=== PATIENT | male | born 1950 | race African-American/Black ===

== ENCOUNTER 2016-07-15 10:56 | Inpatient (IN) ==
[2016-07-15] MEDS ORDERED: ASPIRIN 325 MG TABLET PO STA (11:55)
[2016-07-15] MEDS ORDERED: ENOXAPARIN 100 MG/ML SYRINGE SUBCUT STA (11:55)
[2016-07-15 12:12] LABS: Basophils % 0.6 % (0.0-0.8); Eosinophils # 0.2 10*3/uL (0.0-0.87); Hemoglobin 16.8 GM/DL (14.0-18.0); Immature Granulocytes % 0.2 %; Immature Granulocytes Absolute 0.01 #; Lymphocytes # 1.8 10*3/uL (1.4-4.0); Lymphocytes % 34.8 % (21.2-54.2); Mean Corpuscular HGB Conc 36.5 GM/DL (32-36); Mean Corpuscular Hemoglobin 30 PG (27-34); Mean Corpuscular Volume 82.7 FL (87-102); Mean Platelet Volume 9.2 FL (9.6-12.0); Monocytes # 0.5 10*3/uL (0.11-0.8); Monocytes % 9.3 % (1.7-12.7); Neutrophils # 2.8 10*3/uL (1.4-7.4); Neutrophils % 52.1 % (38.7-73.9); Platelet Count 171 T/CUMM (130-400); Red Blood Count 5.56 MC/CUMM (3.8-5.5); White Blood Count 5.3 T/CUMM (4-12)
--- NOTE | 2016-07-15 12:33 | XRay Report ---
XR chest 2V Date: 07/15/2016 11:56 AM History: Chest pain Comparison: None Technique: PA and lateral chest Findings: The heart is normal in size. The lungs are clear with unremarkable mediastinum. Degenerative changes are noted. Impression: No acute cardiopulmonary pathology identified. PROCEDURE INTERPRETED AT [facility] DEPARTMENT OF RADIOLOGY Final Report Signed by: Dr. Babita Lopez
[2016-07-15 12:47] LABS: Bilirubin,Total 1.3 MG/DL (0.2-1.0); Calcium 8.9 MG/DL (8.5-10.1); Magnesium 2.3 MG/DL (1.8-2.4); Osmolality,Calculated 278.5 MOS/KG (273-304); Potassium 3.8 MMOL/L (3.5-5.1)
[2016-07-15] MEDS ORDERED: ENOXAPARIN 80 MG/0.8 ML SYRINGE SUBCUT ONE (12:48)
[2016-07-15] MEDS ORDERED: ASPIRIN 325 MG TABLET ONE (12:48)
--- NOTE | 2016-07-15 13:10 | Emergency Department Note ---
Gabriela Domínguez Mantricia, am scribing for, and in the presence of, Enmanuel Johns MD 12:03. Nat Domínguez Phillip K, MD, personally performed the services described in this documentation, ascribed by Arina Ochoa in my presence, and it is both accurate and complete 310 . Arrival - Arrival Chief Complaint: Chest Pain Stated Complaint: CHEST PAIN ED Nursing Triage Note: sent from Dr Winchester clinic - left sided chest pain onset x 1 week - pt states that the pain is worse with excertion Mode of Arrival: Wheelchair Limitations: No Limitations Source: Patient Time Seen by Provider: 07/15/16 11:36 - History of Present Illness HPI Narrative: Pt is a 65 y/o black male arriving to ED with c/o chest that onset a week ago. 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 He also states that the day after he rode his bike for 5 minutes and the pain started once again. Pt describes the pain as tight with no radiation and similar to indigestion. He has a PMHx of DM but denies HTN. He states that he has self-prescribed himself an aspirin once a day. Pt reports SOB and denies a treadmill or heart cath. Pt' s PCP is Dr. Winchester. Onset (ago): week(s) Consistency: constant Severity: moderate Severity scale (1-10): 3 Quality: sharp Allergies/Adverse Reactions: Allergies Allergy/AdvReac Type Severity Reaction Status Date / Time No Known Allergies Allergy Unverified 07/15/16 11:00 Review of System - Review of System 12 point system: reviewed and no additional remarkable complaints except as stated - Review of System Constitutional: Absent: chills, diaphoresis, fever Eyes: Absent: discharge, pain, redness Head/Ears/Nose/Throat: Absent: earache, epistaxis Respiratory: Absent: cough, respiratory distress, wheezing Cardiovascular: Present: chest pain (tight), dyspnea on exertion. Absent: palpitations Gastrointestinal: Absent: abdominal pain, nausea, vomiting, diarrhea Genitourinary male: Absent: urgency, frequency Musculoskeletal: Present: leg pain. Absent: arm pain, back pain, lower back pain Skin: Absent: rash, lesions, change in color Neurological: Absent: headache, weakness Psychiatric: Absent: anxiety, depression Medical,Surgical,& Family Hx - Surgical History Cardiac Surgeries: Patient Denies: Internal Defibrillator - Social History Smoking Status: Never smoker Frequency of Alcohol Use: None Type of Drug Use: None Exam Vital Signs: Vital Signs Temperature 97.3 F L 07/15/16 11:00 Pulse Rate 84 07/15/16 11:00 Respiratory Rate 20 07/15/16 11:00 Blood Pressure 164/112 07/15/16 11:00 O2 Sat by Pulse Oximetry 96 07/15/16 11:00 - General General appearance: alert, in no apparent distress - Head Head exam: Present: atraumatic, normocephalic, normal inspection - Eye Eye exam: Present: normal appearance, PERRL, EOMI - ENT ENT exam: Present: normal exam, normal oropharynx, mucous membranes moist, TM's normal bilaterally, normal external ear exam - Neck Neck exam: Present: normal inspection, full ROM, trachea midline. Absent: tenderness - Chest Chest inspection: Present: normal inspection, symmetric chest wall rise. Absent : tenderness - Respiratory Respiratory exam: Present: normal lung sounds bilaterally - Cardiovascular Cardiovascular exam: Present: regular rate, normal rhythm, normal heart sounds - Abdominal Exam Abdominal exam: Present: soft, normal bowel sounds. Absent: distention, tenderness, guarding, rebound - Extremities Exam Extremities exam: Present: normal inspection, full ROM, normal capillary refill. Absent: tenderness, pedal edema - Back Exam Back exam: Present: normal inspection, full ROM. Absent: tenderness - Neurological Exam Neurological exam: Present: alert, oriented X3, CN II-XII intact, normal gait, reflexes normal - Psychiatric Psychiatric exam: Present: normal affect, normal mood - Skin Skin exam: Present: warm, dry, intact, normal color Course Course Narrative: Patient discussed with Dr. Santa. Results - Labs CBC & BMP: 07/15/16 11:57 07/15/16 11:57 Lab Results: I have reviewed the patients labs - EKG EKG results: interpreted by ERMD, WNL, sinus rhythm - Diagnostic Findings Procedure: Chest x-ray: report reviewed by me (Nothing acute) Disposition Clinical Impression: Chest pain, Unstable angina pectoris, Hypertension Case discussed with: patient Condition: Guarded Additional Instructions: Admit to cardiology
--- NOTE | 2016-07-15 13:17 | EKG Report ---
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
--- NOTE | 2016-07-15 14:22 | Cardiology History & Physical ---
<Nora Bowen - Last Filed: 07/15/16 14:01> Assessment and Plan - Time spent with patient Time spent with patient: Greater than 30 minutes (1) Chest pain Status: Acute Assessment and plan: This could possibly be multifactorial. He confirms exertional chest tightness which is concerning for angina. On exam, his left chest is tender to palpation. He is unsure if this reproduces the exact pain that he has been having over the past week. Troponin has been mildly elevated at 0.1. EKG reveals LVH. I will keep patient n.p.o., continue to cycle cardiac biomarkers and further discuss with Dr. Santa about the need for possible cardiac catheterization versus noninvasive workup. -Admit to telemetry -Continue to cycle cardiac biomarkers and EKG -N.p.o. -Echocardiogram -Lipid panel -Aspirin daily -Received therapeutic dose of Lovenox in the emergency department Further plan and addendum to follow per Dr. Santa. Current Visit: Yes (2) Hypertension Status: Acute Assessment and plan: Upon arrival to the emergency department patient was hypertensive. He reports that he does not take anything for high blood pressure at home. EKG was consistent with LVH. At this time I will initiate Coreg and make further adjustments as needed in order to achieve blood pressure control. 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 Tommy Handley Mr. Melara is a 65 year old male without known history of coronary artery disease, not routinely followed by cardiology. Patient presented to the emergency department this morning with a one-week history of exertional chest pain. Patient has coronary risk factors significant for advanced age and borderline diabetic (reports that he had a hemoglobin A1c of 5.8 recently). Patient reports he does not take any prescription medications daily. He is a lifetime non-smoker. He denies any significant family history of coronary artery disease. Patient has never been seen by cardiology and has never undergone heart catheterization or cardiac stress testing. Patient was in his usual state of health until approximately 1 week ago when he began experiencing exertional chest pain. He describes this pain as a left sided chest tightness that is associated with shortness of breath. Nonradiating. He denies nausea, diaphoresis and heart palpitations/heart racing. He tells me that he usually experiences this with exertion. He reports being very active and confirms that over the past week he has experienced chest tightness and shortness of breath while performing his activities. During the past week at work, he reports having multiple episodes of chest tightness while exerting himself. He attempted to ride his stationary exercise bike on Friday and reports that he began having chest discomfort approximately five minutes after starting. This was made better after stopping and resting. On Friday, he then got on the treadmill to attempt to reproduce the pain. He reports having chest tightness approximately 5 minutes after beginning. He reports that this frightened him. This morning, he called Dr. Handley's office in hopes to be worked in early that morning. He was seen by Dr. Handley and was then told to report to the emergency department for further evaluation. Patient has been admitted under cardiology service and will be housed on the telemetry floor. Of note, patient confirms recent change in his exercise tolerance and easy fatigability. He reports that he has noticed worsening dyspnea on exertion. He denies fever, chills, cough, nausea, vomiting, melena, hematochezia, abdominal pain, orthopnea, PND and lower extremity swelling. Patient was seen and examined in the emergency department. He is currently without chest pain, heaviness and tightness. EKG reveals LVH. Chest x-ray does not reveal any acute findings. Troponin mildly elevated at 0.1. On exam, his left chest is tender to palpation. He is unsure if this reproduces the exact pain that he has been having over the past week. At this point, I will keep patient n.p.o., continue to cycle cardiac biomarkers and further discuss with Dr. Santa about possible need for cardiac catheterization versus noninvasive workup. Further plan and addendum to follow per Dr. Santa. Allergies Allergy/AdvReac Type Severity Reaction Status Date / Time No Known Allergies Allergy Unverified 07/15/16 11:00 - Constitutional Constitutional: Present: fatigue. Absent: chills, fever(s), frequent falls, malaise, weakness, weight gain, weight loss - Cardiovascular Cardiovascular: Present: chest pain with activity, dyspnea, dyspnea on exertion. Absent: diaphoresis, edema, radiating jaw, neck or arm pain, lightheadedness, orthopnea, palpitations, PND - Respiratory Respiratory: Present: dyspnea, dyspnea on exertion. Absent: cough, hemoptysis, snoring, pain on inspiration, change in phlegm color - Gastrointestinal Gastrointestinal: Absent: abdominal pain, change in bowel habits, coffee ground emesis, constipation, cramping, diarrhea, hematemesis, hematochezia, loose stools, melena, nausea, vomiting - Neurological Neurological: Absent: abnormal gait, abnormal speech, behavioral changes, dizziness, frequent falls, headache(s), syncope - Hematologic/Lymphatic Hematologic/Lymphatic: Absent: easy bleeding, easy bruising, lymphadenopathy Medical,Surgical,& Family Hx - Medical History Endocrine: History of: Diabetes Mellitus (NIDDM) (Borderline diabetic) - Surgical History Cardiac Surgeries: Patient Denies: Cardiac Surgery, Internal Defibrillator - Family History Family History: Denies;: Family Heart Disease - Social History Smoking Status: Never smoker Frequency of Alcohol Use: None Type of Drug Use: None Cardiology Physical Exam - Constitutional Vitals: Vital Signs Temp Pulse Resp BP Pulse Ox 97.3 F L 84 18 164/112 100 07/15/16 13:07 07/15/16 13:07 07/15/16 13:07 07/15/16 13:07 07/15/16 13:00 General appearance: normal weight, no acute distress - Head Head exam: Present: normal inspection, normocephalic, atraumatic - Neck Neck exam: Present: normal inspection. Absent: lymphadenopathy, tenderness, thyromegaly - Respiratory Respiratory exam: Present: clear to auscultation bilaterally, chest wall tenderness. Absent: accessory muscle use, rales, rhonchi, stridor, wheezes - Cardiovascular Cardiovascular exam: Present: regular rate and rhythm. Absent: gallop, rubs, systolic murmur - GI/Abdominal GI/Abdominal exam: Present: normal bowel sounds, soft. Absent: distended, firm , mass, tenderness - Extremities Exam Extremities exam: Present: normal inspection, normal capillary refill. Absent: calf tenderness, edema - Neurological Exam Neurological exam: Present: alert, oriented X3, normal gait - Psychiatric Psychiatric exam: Present: normal affect, normal mood - Skin Skin exam: Present: normal color, warm, dry Result/EKG - Labs CBC & BMP: 07/15/16 11:57 07/15/16 11:57 Lab Results: I have reviewed the past 24 hour labs <Eyal Santa - Last Filed: 07/15/16 15:44> History of Present Illness History of present illness: I have personally interviewed and examined patient and reviewed chart. Discussed case with Nora Bowen NP and agree with accessment and plan. In summation and addition Mr. Melara is a 65 year old male for the past 2 weeks had developed predictable exertional angina. This beginning to limit his activities. On evaluation his ECG throat unremarkable. Troponin 0.137. Patient with his history she had cardiac catheterization and I discussed this with the patient and with Dr. Lewis. I discussed cardiac catheterization and percutaneous coronary intervention with the patient and available family. I reviewed with them the indications for the procedure and the basis of how the procedure would be carried out. I also reviewed with them the risk of the procedure which include but not necessarily limited to access site bleeding, bruising, pain, swelling or vascular injury that may require emergency vascular surgery, blood transfusion, or thrombin injection. Also discussed the possibility of stroke, myocardial infarction, arrhythmia which may require electrocardioversion, and the possibility of dye reaction that would require medical therapy. Also discussed the possibility of coronary artery injury, ruptured, closure or perforation that may require emergency bypass surgery. We also discussed the possibility of from a major complication. They voice understanding and agree to proceed. Procedures planned for tomorrow. Cardiology Physical Exam - Constitutional Vitals: Vital Signs Temp Pulse Resp BP Pulse Ox 97.9 F 68 18 159/94 98 07/15/16 14:49 07/15/16 14:49 07/15/16 14:49 07/15/16 14:49 07/15/16 14:49 Result/EKG - Labs CBC & BMP: 07/15/16 11:57 07/15/16 11:57
[2016-07-15] MEDS ORDERED: MAGNESIUM SULF RIDER 4 GM in PREMIX 1 EACH IV PRN (14:48)
[2016-07-15] MEDS ORDERED: MAGNESIUM SULF RIDER 2 GM in PREMIX 1 EACH IV PRN ×2 (14:48→15:18)
[2016-07-15] MEDS ORDERED: ONDANSETRON 4 MG/2 ML VIAL IV PRN (14:48)
[2016-07-15 14:55] LABS: Risk Ratio 5.73
--- NOTE | 2016-07-15 15:17 | EKG Report ---
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
[2016-07-15] MEDS ORDERED: POTASSIUM CHLORIDE RIDER 10 MEQ in PREMIX 1 EACH IV PRN (15:18)
[2016-07-15] MEDS: DEXTROSE 5% NACL 0.45% 1,000 ML IV SCH ×2 (15:22→23:30)
[2016-07-15 15:45] LABS: Troponin I Only 0.152 NG/ML (0.00-0.045)
--- NOTE | 2016-07-15 16:09 | Event Note ---
Mr. Bryon Ayala is now asymptomatic. He has had recurrent chest pain with clear exertional component. He has slight elevation of troponin with nonspecific ST- T changes. Given the suggestion of symptoms and his risk factors, he wishes for definitive evaluation, and so heart catheterization is recommended to define his coronary anatomy. We will plan for heart catheterization in the morning from right groin access. I discussed with the patient the risks and benefits of heart catheterization including but not limited to: , stroke, heart attack, vascular damage, reaction to medicine or dye, bleeding requiring blood transfusion, failure of the procedure, and the possible need for planned or emergency surgery. I have answered all the patient's questions regarding the procedure, and the patient is agreeable to proceed.
[2016-07-15 16:19] LABS: INR 1.1; PT Patient Result 11.7 SECS
[2016-07-15] MEDS: CARVEDILOL 6.25 MG TABLET PO SCH ×2 (17:48→21:25)
[2016-07-15] MEDS: ATORVASTATIN 40 MG TABLET PO SCH (17:48)
[2016-07-15 17:56] LABS: Troponin I Only 0.168 NG/ML (0.00-0.045)
--- NOTE | 2016-07-15 18:40 | ECHO Report ---
Bryon Melara Exam Date: 07/15/2016 16:10 Referring Physician: Technologist: Candi Noland RDCS Age: 65 Ht (in): 67 Wt (lb): 165 Gender: M Exam Location: [facility] Echo Indications: Chest pain, unspecified, Essential (primary) hypertension, Chronic fatigue, unspecified, Dyspnea, unspecified, NIDDM BP: 159 / 94 HR: 66 Rhythm: Sinus Technical Quality: Good IMPRESSIONS 1. Left ventricle is normal size and systolic function with ejection fraction of 60%. No segmental wall motion amount is. 2. Other cardiac chambers are normal size and function. 3. Trace to mild mitral valve regurgitation. 4. Trace to mild tricuspid valve regurgitation. 5. Overall this is an unremarkable echocardiogram.[id number] MEASUREMENTS (Male / Female) Normal Values 2D ECHO LV Diastolic Diameter PLAX 3.9 cm 4.2 - 5.9 / 3.9 - 5.3 cm LV Systolic Diameter PLAX 2.3 cm LV Fractional Shortening PLAX 40.2 % IVS Diastolic Thickness 1.0 cm 0.6 - 1.0 / 0.6 - 0.9 cm LVPW Diastolic Thickness 1.0 cm 0.6 - 1.0 / 0.6 - 0.9 cm RV Internal Dim ED PLAX 2.8 cm Aortic Root Diameter 3.1 cm LA Systolic Diameter LX 3.5 cm 3.0 - 4.0 / 2.7 - 3.8 cm DOPPLER TR Peak Velocity 232.0 cm/s TR Peak Gradient 21.5 mmHg FINDINGS Left Ventricle Normal left ventricular cavity size. Normal left ventricular wall thickness. Left ventricular ejection fraction is estimated at 60 %. Right Ventricle The right ventricle is normal in size and function. Right Atrium The right atrium is normal in size. Left Atrium The left atrium is normal in size. Mitral Valve Morphologically normal mitral valve. Trace to mild mitral valve regurgitation. Aortic Valve Morphologically normal aortic valve without significant sclerosis or stenosis. There is no aortic regurgitation. Tricuspid Valve Morphologically normal tricuspid valve. Trace to mild tricuspid valve regurgitation. Tricuspid regurgitation velocities suggest a PAP of 32 mmHg. Pulmonic Valve Morphologically normal pulmonic valve without significant stenosis. There is no pulmonic regurgitation. Pericardium Normal pericardium without effusion. Aorta Normal ascending aorta dimension. Eyal Santa MD (Electronically Signed) Final Date: 15 Jul 2016 18:39
[2016-07-15] MEDS: ENOXAPARIN 80 MG/0.8 ML SYRINGE SUBCUT SCH (21:25)
[2016-07-16 07:06] LABS: Basophils % 0.4 % (0.0-0.8); Eosinophils # 0.1 10*3/uL (0.0-0.87); Eosinophils % 2.3 % (0.00-10.9); Hematocrit 39.6 VOL% (42.0-52.0); Immature Granulocytes % 0.4 %; Immature Granulocytes Absolute 0.02 #; Lymphocytes # 1.5 10*3/uL (1.4-4.0); Lymphocytes % 26.3 % (21.2-54.2); Mean Corpuscular HGB Conc 35.1 GM/DL (32-36); Mean Corpuscular Hemoglobin 31 PG (27-34); Mean Corpuscular Volume 87.4 FL (87-102); Mean Platelet Volume 9.2 FL (9.6-12.0); Monocytes # 0.4 10*3/uL (0.11-0.8); Monocytes % 7.5 % (1.7-12.7); Neutrophils # 3.5 10*3/uL (1.4-7.4); Neutrophils % 63.1 % (38.7-73.9); Platelet Count 141 T/CUMM (130-400); Red Blood Count 4.53 MC/CUMM (3.8-5.5); Red Cell Distribution Width 12.9 % (9.3-17.3); White Blood Count 5.6 T/CUMM (4-12)
[2016-07-16 07:09] LABS: Hemoglobin 13.9 GM/DL (14.0-18.0)
--- NOTE | 2016-07-16 07:21 | EKG Report ---
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
[2016-07-16 07:28] LABS: Calcium 7.1 MG/DL (8.5-10.1); Potassium 3.6 MMOL/L (3.5-5.1)
[2016-07-16] MEDS ORDERED: diphenhydrAMINE CAP 25 MG CAPSULE PO ONE (07:30)
[2016-07-16] MEDS ORDERED: DIAZEPAM 5 MG TABLET PO ONE (07:30)
[2016-07-16 07:32] LABS: Troponin I Only 0.089 NG/ML (0.00-0.045)
[2016-07-16] MEDS: SODIUM CHLORIDE 0.45% 1,000 ML IV SCH ×2 (08:12→17:18)
[2016-07-16] MEDS: DEXTROSE 5% NACL 0.45% 1,000 ML IV SCH (08:28)
[2016-07-16] MEDS ORDERED: ASPIRIN 325 MG TABLET PO SCH (09:00)
[2016-07-16] MEDS ORDERED: LIDOCAINE 1% 20 ML VIAL ONE (09:04)
[2016-07-16] MEDS ORDERED: HYDROmorphone 2 MG/1 ML VIAL ONE (09:07)
[2016-07-16] MEDS ORDERED: MIDAZOLAM 2 MG/2 ML VIAL ONE (09:08)
[2016-07-16] MEDS ORDERED: DIAZEPAM 5 MG TABLET ONE (09:15)
[2016-07-16] MEDS ORDERED: diphenhydrAMINE CAP 25 MG CAPSULE ONE (09:15)
[2016-07-16] MEDS ORDERED: ASPIRIN 325 MG TABLET ONE (09:16)
[2016-07-16] MEDS ORDERED: ENOXAPARIN 60 MG/0.6 ML SYRINGE ONE (09:44)
[2016-07-16] MEDS ORDERED: TICAGRELOR 90 MG TABLET ONE (09:47)
[2016-07-16] MEDS ORDERED: ADENOSINE 90 MG/30 ML VIAL IV ONE (10:16)
[2016-07-16] MEDS ORDERED: ZALEPLON 5 MG CAPSULE PO PRN (10:34)
[2016-07-16] MEDS ORDERED: HYDROmorphone 2 MG/1 ML VIAL IV PRN (10:34)
[2016-07-16] MEDS ORDERED: NITROGLYCERIN SL 0.4 MG TABLET SL PRN (10:34)
--- NOTE | 2016-07-16 10:49 | Cardiac Catheterization ---
Date of Procedure:: 07/16/16 Post-op diagnosis: same Procedure: Procedure performed: 1. Left heart catheterization 2. Coronary angiography 3. Left ventricular for 4. Angioplasty and stenting of proximal ID with drug-eluting stent (3.5 x 15) 5. Angioplasty of critical distal LAD disease with 2.0 x 30 balloon 6. WaveWire evaluation of proximal circumflex intermediate disease 7. Right femoral artery closure with the Angio-Seal device Brief clinical summary: The patient presented with exertional chest discomfort and mild troponin elevation suggestive non-STEMI. Description of procedure: After obtaining informed consent, the right groin was prepped and draped in the usual sterile fashion. Next a short 6 Lithuanian sheath was placed in the right femoral artery using a modified Seldinger technique, after the patient received IV sedation and local anesthetic. Next a JL4 catheter was advanced over a guidewire under fluoroscopic guidance, and was engaged to the left coronary artery after which angiography was performed in multiple views. This was then removed over a wire, and a JR4 catheter was advanced in similar fashion, and was engaged to the right coronary artery after which angiography was performed in multiple views. Next a bent pigtail catheter was advanced into the left ventricle, where hemodynamic measurements were obtained, and left ventriculography was performed. Percutaneous coronary intervention was then performed as described below. After intervention, an angiogram of the sheath showed that it was inserted in the right common femoral artery in a vessel suitable for closure. Hemostasis was obtained with Angio- Seal device with no residual bleeding. The patient was transferred from the supervisor cytogenetic laboratory in good condition without complication. Percutaneous coronary mention: The patient by the Pick Up having received Lovenox 24 hours ago. I gave him additional 0.5 mg/kg of IV Lovenox. He was given aspirin prior to procedure. We loaded him with Brilinta on the table prior to procedure. A EBU 3.5 guiding cath was advanced but would not engage the left coronary artery. Therefore was removed and a 4.0 EBU was advanced and engaged the vessel well providing good support. Next a pro-water wire was advanced to the distal LAD with only modest difficulty. After this a 3.0 x 12 balloon was advanced across the proximal lesion was dilated to just below nominal pressures. There was residual stenosis of about 50%. The balloon was removed and a 3.5 x 15 drug-eluting Lucho stent was advanced and positioned being deployed at nominal pressures. The stent was well sized proximally was slightly oversized distally without dissection. The balloon was then removed. Next a 2.0 x 30 compliant balloon was advanced over the wire after was positioned in the distal tip of the LAD. It was advanced across area of very distal disease and dilated to low pressure. There was one discrete area of stenosis. Therefore pulled the balloon back about a centimeter and a half and redilated leaving the distal tip of the balloon just across the tight stenosis. It was dilated to just under normal pressures for 2 minutes. There was an excellent radiographic result. Of note there was JOSÉ MIGUEL II flow at the B and the procedure was JOSÉ MIGUEL-3 flow in the LAD afterwards. There was 0% residual stenosis of the distal aorta proximally sites. The patient tolerated procedure very well without complication. The wire was then removed, and a wave wire was calibrated and advanced into the circumflex. Adenosine infusion was performed with lowest FFR of 0.84. The proximal circumflex lesion was therefore deemed not significant and w will be treated medically. Left ventriculography: Left ventricle normal size and normal LV systolic function for this with ejection fraction 60% without segmental wall motion only. Coronary angiography: Left main coronary is normal to felt very disease. Is a bit larger than average caliber per the LAD is also slightly larger than average caliber but there is a critical 99% approximately stenosis. There is also a 99% very distal LAD stenosis and the vessel fills by [id number] collaterals past the apex. There is 1 larger than average diagonal branch that comes off high with a 60% ostial stenosis near the area of critical LAD disease. The circumflex gives off a small OM1 and a very large bifurcating OM 2 branch. There is also an average caliber P01 and PL due and a small left sided PDA. The right coronary artery is smaller than average caliber and is codominant vessel giving off a long thin acute marginal which provides some small septal perforators. There is a 90% proximal stenosis and a 99% mid stenosis. Impression: 1. Normal LV systolic function with ejection fraction is to be 65% without segmental wall motion abnormality. 2. Left dominant versus codominant system (smaller contribution from a smaller RCA) 3. Coronary artery disease as described above including but not limited to: A. 99% proximal LAD stenosis which is discrete, as well as 99% very distal LAD stenosis with apical segment being filled by [id number] collaterals B. 60% proximal circumflex stenosis (nonsignificant by WaveWire evaluation with FFR 0.84) C. 90% proximal and 99% mid RCA disease (reasonably small vessel) 4. Status post angioplasty stenting of proximal LAD with 3.5 x 15 YOSSI with good result (well sized proximally and slightly oversized distally) 5. Status post angioplasty of critical distal artery disease with 2.0 x 30 balloon with good result (no residual stenosis) Recommendation discussion: I believe achieved very good result with regard to stenting Mr. Kang critical proximal knee lesion, as well as his critical distal artery disease. His circumflex to be treated medically given the negative FFR. His RCA can be treated medically to his it is a smallish and more left dominant system. He will continue on aspirin and Brilinta. He will need to avoid squatting strain lifting for the next 1 week time per Anesthesia: minimal conscious sedation Surgeon / Physician: Darrell Lewis Catering Chef: other Estimated blood loss: minimal Specimens: none sent Condition: stable Disposition: floor - Medications / Follow-up
--- NOTE | 2016-07-16 12:09 | EKG Report ---
Stationary ECG Study [facility] Test Date: 07/16/2016 12:09:12 PM Pat Name: RUSSEL MAR Department: Room: 287 Gender: M Behavioral Health Tech: YOAV : 1950 Requested by: Darrell Sanz Order Number: [id number] Reading MD: HAYDE WALTERS Intervals [place] Rate: 51 P: 12 GA: 198 QRS: 125 QRSD: 100 T: -12 QT: 435 QTc: 412 Interpretive Statements SINUS BRADYCARDIA POSSIBLE RIGHT VENTRICULAR HYPERTROPHY Electronically Signed On 07-22-16 10:45:11 CDT by HAYDE WALTERS [email or web address]
[2016-07-16 13:18] LABS: Calcium 8.1 MG/DL (8.5-10.1); Osmolality,Calculated 274.7 MOS/KG (273-304); Potassium 4.1 MMOL/L (3.5-5.1)
[2016-07-16 13:19] LABS: Troponin I Only 0.129 NG/ML (0.00-0.045)
[2016-07-16] MEDS: ATORVASTATIN 40 MG TABLET PO SCH (15:30)
[2016-07-16] MEDS: CARVEDILOL 6.25 MG TABLET PO SCH ×2 (15:30→21:37)
[2016-07-16] MEDS: ENOXAPARIN 80 MG/0.8 ML SYRINGE SUBCUT SCH ×2 (15:30→21:38)
[2016-07-16] MEDS: TICAGRELOR 90 MG TABLET PO SCH (21:37)
[2016-07-17 04:52] LABS: Basophils % 0.4 % (0.0-0.8); Eosinophils # 0.2 10*3/uL (0.0-0.87); Eosinophils % 2.9 % (0.00-10.9); Hematocrit 44.5 VOL% (42.0-52.0); Hemoglobin 15.9 GM/DL (14.0-18.0); Immature Granulocytes % 0.1 %; Immature Granulocytes Absolute 0.01 #; Lymphocytes # 1.9 10*3/uL (1.4-4.0); Lymphocytes % 28.3 % (21.2-54.2); Mean Corpuscular HGB Conc 35.7 GM/DL (32-36); Mean Corpuscular Hemoglobin 30 PG (27-34); Mean Corpuscular Volume 84.1 FL (87-102); Mean Platelet Volume 9.3 FL (9.6-12.0); Monocytes # 0.6 10*3/uL (0.11-0.8); Monocytes % 9.2 % (1.7-12.7); Neutrophils % 59.1 % (38.7-73.9); Platelet Count 172 T/CUMM (130-400); Red Blood Count 5.29 MC/CUMM (3.8-5.5); Red Cell Distribution Width 12.9 % (9.3-17.3); White Blood Count 6.9 T/CUMM (4-12)
[2016-07-17 05:19] LABS: Calcium 8.1 MG/DL (8.5-10.1); Magnesium 2.3 MG/DL (1.8-2.4); Osmolality,Calculated 283.3 MOS/KG (273-304); Potassium 4.1 MMOL/L (3.5-5.1)
[2016-07-17 05:32] LABS: Troponin I Only 0.093 NG/ML (0.00-0.045)
--- NOTE | 2016-07-17 07:44 | EKG Report ---
Stationary ECG Study [facility] Test Date: 07/17/2016 7:43:39 AM Pat Name: RUSSEL MAR Department: Room: 287 Gender: M Graphic Specialist: YOAV : 1950 Requested by: Darrell Sanz Order Number: [id number] Reading MD: EMILEE SHARMA Intervals [place] Rate: 62 P: 38 DE: 193 QRS: 71 QRSD: 109 T: 21 QT: 389 QTc: 395 Interpretive Statements SINUS RHYTHM 62 bpm Mild NST Electronically Signed On 07-22-16 15:28:14 CDT by EMILEE SHARMA [email or web address]
[2016-07-17] MEDS: TICAGRELOR 90 MG TABLET PO SCH (08:26)
[2016-07-17] MEDS: ATORVASTATIN 40 MG TABLET PO SCH (08:27)
[2016-07-17] MEDS: CARVEDILOL 6.25 MG TABLET PO SCH (08:27)
[2016-07-17] MEDS: ENOXAPARIN 80 MG/0.8 ML SYRINGE SUBCUT SCH (08:29)
[2016-07-17] MEDS ORDERED: ASPIRIN EC 81 MG TABLET PO SCH (09:00)
[2016-07-17 11:49] VITALS: BP 121/77
--- NOTE | 2016-07-17 12:10 | Discharge Summary ---
<Nora Bowen - Last Filed: 07/17/16 11:58> Hospital Course - Hospital Course Hospital Course: Nuclear Equipment Sales Engineer: Dr. Santa (new) PCP: Dr. Tommy Handley Mr. Melara, 65-year-old -[place] male presented to [facility] with exertional chest discomfort with mild troponin elevation suggestive for non-ST elevation NH. Subsequently, patient underwent left heart catheterization per Dr. Lewis with the following impressions noted: Impression: 1. Normal LV systolic function with ejection fraction is to be 65% without segmental wall motion abnormality. 2. Left dominant versus codominant system (smaller contribution from a smaller RCA) 3. Coronary artery disease as described above including but not limited to: A. 99% proximal LAD stenosis which is discrete, as well as 99% very distal LAD stenosis with apical segment being filled by erxqd-fk-nmji collaterals B. 60% proximal circumflex stenosis (nonsignificant by WaveWire evaluation with FFR 0.84) C. 90% proximal and 99% mid RCA disease (reasonably small vessel) 4. Status post angioplasty stenting of proximal LAD with 3.5 x 15 YOSSI with good result (well sized proximally and slightly oversized distally) 5. Status post angioplasty of critical distal artery disease with 2.0 x 30 balloon with good result (no residual stenosis) Recommendation discussion: I believe achieved very good result with regard to stenting Mr. Kang critical proximal knee lesion, as well as his critical distal artery disease. His circumflex to be treated medically given the negative FFR. His RCA can be treated medically to his it is a smallish and more left dominant system. He will continue on aspirin and Brilinta. He will need to avoid squatting strain lifting for the next 1 week. Patient underwent echocardiogram this admission which revealed a normal sized left ventricle with normal systolic function with ejection fraction of 60% noted. Trace to mild mitral valve regurgitation, trace to mild tricuspid valve regurgitation also noted. Post cardiac catheterization patient was transferred back to the telemetry unit in stable condition. Patient did well overnight and has been without complications. Labs this morning are stable. Creatinine post catheterization to be 1.2. Troponin is trending down as expected. Patient denies chest pain, heaviness and tightness. Right groin is soft without bleeding, hematoma and bruit. Distal pulses present. Patient has ambulated around the room and down the tinoco without difficulty. Right groin has remained stable post ambulation. Right groin precautions have been reviewed with the patient. He verbalizes understanding. I have discussed with the patient the importance of compliance with dual antiplatelet therapy without fail. He verbalizes understanding of this. Patient is anxious for discharge home. Having felt that he has met maximal medical therapy, he will be discharged home in stable condition. He has been given a follow-up appointment with Dr. Santa in 1-2 weeks with CBC, BMP, magnesium and EKG. Patient verbalized understanding of discharge instructions and discharge medications. Discharge medications will include the following: Aspirin 81 mg daily Brilinta 90 mg p.o. twice daily Lipitor 40 mg daily Coreg 6.25 mg p.o. twice daily Nitroglycerin sublingual as needed for chest pain - Time spent with patient Time with patient DS: Greater than 30 minutes Diagnosis - Discharge Diagnosis (1) Non-STEMI (non-ST elevated myocardial infarction) Status: Resolved Specialty Discharge - Follow Up or Referrals Follow up with: Eyal Santa MD [Physician] - 07/31/16 9:40 am (Patient will need follow- up appointment with Dr. Santa in 1-2 weeks with CBC, BMP, magnesium and EKG.) Discharge Plan - Discharge Data Disposition: Disch To Home/Self Care Condition at Discharge: Stable Discharge Diet: heart healthy Activity: no lifting (Avoid heavy lifting and squatting 1 week), other (Post cath expectations) Hygiene: may shower Weight Bearing at Discharge: other (Post cath expectations) Driving: other (Post cath expectations) Contact your physician if you experience:: fever over 101, Difficulty voiding, Redness or swelling, Nausea/Vomiting, Shortness of breath, Bleeding, pain uncontrolled by pain medications - Discharge Medications New Aspirin EC Tab 81 mg PO DAILY #30 tablet Atorvastatin [Lipitor] 40 mg PO DAILY #30 tablet Nitroglycerin Sl Tab [Nitrostat] 0.4 mg SL Q5M PRN #1 bottle PRN Reason: Chest Pain Ticagrelor [Brilinta] 90 mg PO BID #60 tablet Carvedilol [Coreg] 6.25 mg PO BID #60 tablet - Follow Up or Referral Follow Up: Eyal Santa MD [Physician] - 07/31/16 9:40 am (Patient will need follow- up appointment with Dr. Santa in 1-2 weeks with CBC, BMP, magnesium and EKG.) - Forms/Instructions Instructions: Left Heart Catheterization (DC), Heart Healthy Diet (GEN), Coronary Intravascular Stent Placement, Hostel Manager (GEN) Exam - Constitutional Vitals: Period Temp Pulse Resp BP Sys/Still Pulse Ox Last 24 Hr 96.4 F-97.9 F 64-69 18-20 121-155/74-94 91-98 Exam: General appearance: normal weight, no acute distress - Head Head exam: Present: normal inspection, normocephalic, atraumatic - Neck Neck exam: Present: normal inspection. Absent: lymphadenopathy, tenderness, thyromegaly - Respiratory Respiratory exam: Present: clear to auscultation bilaterally, chest wall tenderness. Absent: accessory muscle use, rales, rhonchi, stridor, wheezes - Cardiovascular Cardiovascular exam: Present: regular rate and rhythm. Absent: gallop, rubs, systolic murmur - GI/Abdominal GI/Abdominal exam: Present: normal bowel sounds, soft. Absent: distended, firm , mass, tenderness - Extremities Exam Extremities exam: Present: normal inspection, normal capillary refill. Right groin is soft without bleeding, hematoma and bruit. Distal pulses present. Absent: calf tenderness, edema - Neurological Exam Neurological exam: Present: alert, oriented X3, normal gait - Psychiatric Psychiatric exam: Present: normal affect, normal mood - Skin Skin exam: Present: normal color, warm, dry Discharge Results Labs on day of discharge: Labs from last 24 hours 07/17/16 07/17/16 07/17/16 03:55 03:55 03:55 WBC 6.9 RBC 5.29 Hgb 15.9 D Hct 44.5 MCV 84.1 L MCH 30 MCHC 35.7 RDW 12.9 Plt Count 172 D MPV 9.3 L Neut % (Auto) 59.1 Lymph % (Auto) 28.3 [place] % (Auto) 9.2 Eos % (Auto) 2.9 Baso % (Auto) 0.4 Neut # (Auto) 4.0 Lymph # (Auto) 1.9 [place] # (Auto) 0.6 Eos # (Auto) 0.2 Baso # (Auto) 0.0 Immature Gran % 0.1 Nucleated RBC % 0.0 Immature Gran # 0.01 Nucleated RBCs # 0.00 Sodium 141 Potassium 4.1 Chloride 105 Carbon Dioxide 28 Anion Gap 12.1 BUN 17 Creatinine 1.20 GFR Calculation 79 BUN/Creatinine Ratio 14.00 Glucose 108 H POC Glucose Calculated Osmolality 283.3 Calcium 8.1 L Magnesium 2.3 Total Creatine Kinase 76 CK-MB (CK-2) 1.7 Troponin I 0.093 H D 07/16/16 20:11 WBC RBC Hgb Hct MCV MCH MCHC RDW Plt Count MPV Neut % (Auto) Lymph % (Auto) [place] % (Auto) Eos % (Auto) Baso % (Auto) Neut # (Auto) Lymph # (Auto) [place] # (Auto) Eos # (Auto) Baso # (Auto) Immature Gran % Nucleated RBC % Immature Gran # Nucleated RBCs # Sodium Potassium Chloride Carbon Dioxide Anion Gap BUN Creatinine GFR Calculation BUN/Creatinine Ratio Glucose POC Glucose 102 Calculated Osmolality Calcium Magnesium Total Creatine Kinase CK-MB (CK-2) Troponin I - Imaging and Cardiology Cardiology Procedure: report reviewed by me DS: Provider Date of admission: 07/16/16 13:26 Primary care physician: . No PCP Attending physician on admission: Gavino Cote Discharging clinician: Nora Bowen NP Expected date of discharge: 07/17/16 <Eyal Santa - Last Filed: 07/17/16 18:34> Hospital Course - Hospital Course Hospital Course: Patient on interview and examine chart reviewed prior to discharge. Patient is doing well and will be follow-up as an outpatient. I agree with assessment and evaluation and plans.
== END 2016-07-17 13:55 | disposition home or self-care (01) | DRG 247 ==
LOC: N.EDINP 10:56 → N.ED 10:56 → N.TELEN 14:28
PROVIDERS: ADMIT Internal Medicine Cardiovascular Disease; ATTEND Internal Medicine Cardiovascular Disease
PROC: CLCCHCL (ICD-10-PCS; 2016-07-16 09:45)